=== PATIENT | female | born 1965 | race Caucasian/White ===

== ENCOUNTER 2017-01-11 17:34 | Inpatient (IN) | payer OTHER ==
[~2017-01-11] VITALS: Ht 172.7 cm; Wt 121.1 kg
--- NOTE | 2017-01-11 17:40 | NUR ---
ACCORDING TO DR TEIXEIRA PT IS NOT MEETING CRITERIA FOR CODE SEPSIS.
[2017-01-11] MEDS ORDERED: VANCOMYCIN IV 1,000 MG in IV DEXTROSE 5% 250 ML IV ONE (17:45)
[2017-01-11] MEDS ORDERED: ACETAMINOPHEN 325 MG TABLET PO ONE (17:45)
[2017-01-11] MEDS ORDERED: CEFAZOLIN 1 G in IV DEXTROSE 5% 50 ML IV ONE (17:45)
[2017-01-11] MEDS ORDERED: NAPR500T3 PO (17:58)
[2017-01-11] MEDS ORDERED: ALBU18HF2 INH (17:58)
[2017-01-11] MEDS ORDERED: IBUP-1953 PO (17:58)
[2017-01-11] MEDS ORDERED: FLUT1DIS28 INH (17:58)
--- NOTE | 2017-01-11 17:58 | NUR ---
MEDICATION INFORMATION FROM PT BEST SHE CAN RECALL.
--- NOTE | 2017-01-11 18:00 | NUR ---
UNABLE TO INSERT F/C. DR TEIXEIRA NOTIFIED.
--- NOTE | 2017-01-11 18:02 | NUR ---
PT IS IN ROOM #1B. DR TEIXEIRA EVALUATED THE PT.
[2017-01-11] MEDS ORDERED: ALBUTEROL SULFATE 2.5 MG/3 ML NEBU NEB ONE (18:15)
[2017-01-11] MEDS ORDERED: IPRATROPIUM BROMIDE 0.5 MG/2.5 ML NEBU NEB ONE (18:15)
[2017-01-11] MEDS ORDERED: MAGNESIUM SULFATE 2 GM in IV DEXTROSE 5% 100 ML IV ONE (18:15)
[2017-01-11] MEDS ORDERED: IPRATROPIUM BROMIDE 0.5 MG/2.5 ML NEBU ONE (18:23)
[2017-01-11] MEDS ORDERED: ALBUTEROL SULFATE 2.5 MG/3 ML NEBU ONE (18:23)
[2017-01-11 18:31] LABS: CREATININE 0.9 mg/dL (0.6-1.3); POTASSIUM 3.2 mmol/L (3.5-5.1)
[2017-01-11 18:34] LABS: BASOPHILS % (AUTO) 0.1 % (0.0-2.0); EOSINOPHILS % (AUTO) 0.1 % (0.0-7.0); HEMATOCRIT 30.4 % (37-47); HEMOGLOBIN 9.6 G/DL (12.0-16.0); LYMPHOCYTES # (AUTO) 0.6 K/UL (0.8-4.8); LYMPHOCYTES % (AUTO) 4.4 % (20.5-51.5); MEAN CORPUSCULAR HEMOGLOBIN 22.7 UUG (27.0-31.0); MEAN CORPUSCULAR HGB CONC 32 g/dL (32.0-37.0); MEAN CORPUSCULAR VOLUME 72.1 FL (81.0-99.0); MONOCYTES # (AUTO) 0.4 K/UL (0.1-1.30); MONOCYTES % (AUTO) 3.2 % (0.0-11.0); NEUTROPHILS % (AUTO) 92.2 % (38.5-71.5); PLATELET COUNT (AUTO) 192 K/UL (150-450); RED BLOOD CELL COUNT(AUTO) 4.22 MIL/UL (4.2-5.4)
[2017-01-11] MEDS ORDERED: ACETAMINOPHEN 325 MG TABLET ONE (18:38)
[2017-01-11] MEDS ORDERED: CEFAZOLIN 1 G VIAL ONE (18:38)
[2017-01-11] MEDS ORDERED: VANCOMYCIN IV 200 ML ONE (18:39)
[2017-01-11 18:44] LABS: BILIRUBIN,DIRECT 0.6 mg/dL (0.0-0.2); BILIRUBIN,TOTAL 1.2 mg/dL (0.2-1.0); TOTAL PROTEIN, SERUM 7.1 g/dL (6.4-8.2)
[2017-01-11] MEDS ORDERED: MAGNESIUM SULFATE/D5W 100 ML ONE (19:14)
[2017-01-11 19:37] LABS: BAND % (MANUAL) 45 % (0-10); LYMPHOCYTES % (MANUAL) 4 % (20-40); MONOCYTES % (MANUAL) 3 % (2-10); NEUTROPHILS % (MANUAL) 48 % (42-75)
[2017-01-11] MEDS ORDERED: MAGNESIUM HYDROXIDE 30 ML LIQUID UDC PO PRN (19:45)
[2017-01-11] MEDS ORDERED: ONDANSETRON 4 MG/2 ML VIAL IV PRN (19:45)
[2017-01-11] MEDS ORDERED: IBUPROFEN 400 MG TABLET PO PRN (19:45)
[2017-01-11] MEDS ORDERED: ALBUTEROL SULFATE 8 GM HFA.AER.AD INH SCH (19:45)
[2017-01-11] MEDS ORDERED: Z GUARD REMEDY PASTE 57 GM TUBE TOP PRN (19:45)
--- NOTE | 2017-01-11 19:45 | NUR ---
Patient does not qualify for sepsis criteria per Dr Titus
--- NOTE | 2017-01-11 19:47 | NUR ---
Per Dr Titus, Abrams Cath not indicated for patient at this time.
--- NOTE | 2017-01-11 20:15 | NUR ---
Admitted patient from ER with admitting DX: Cellulitis. AAO x 3, verbally reponsive but very drowsy during admission process. Routine admission care done. Plan of care initiated.
--- NOTE | 2017-01-11 20:22 | NUR ---
Pt. admitted to Telemetry , under care of Dr. Medina. Dx: Cellulitis Belongs List completed
[2017-01-11 21:58] VITALS: BP 100/53
[2017-01-12 00:18] LABS: BILIRUBIN,DIRECT 0.5 mg/dL (0.0-0.2); TOTAL PROTEIN, SERUM 6.5 g/dL (6.4-8.2)
[2017-01-12 00:26] VITALS: BP 98/58
[2017-01-12 05:18] VITALS: BP 100/62
--- NOTE | 2017-01-12 06:11 | NUR ---
Slept good. Patient more awake and alert now. Had episode of LBM x 1. No complaint of pain/discomforts presented. All needs attended and met. No significant event reported all night. Continue care as planned.
[2017-01-12 06:36] LABS: *BILIRUBIN,URIN NEGATIVE (NEGATIVE); *BLOOD, URINE NEGATIVE (NEGATIVE); *CLARITY,URINE TURBID (CLEAR); *COLOR,URINE YELLOW (YELLOW); *KETONES,URINE NEGATIVE (NEGATIVE); *PROTEIN,URINE 2+ (NEGATIVE); LEUKOCYTE ESTERASE ,URINE NEGATIVE (NEGATIVE); NITRITE, URINE NEGATIVE (NEGATIVE); UGLUCOSE NEGATIVE (NEGATIVE)
[2017-01-12 06:43] LABS: *URINE HCG, QUAL NEGATIVE (NEGATIVE)
[2017-01-12 06:53] LABS: BACTERIA,URINE FEW /HPF (NONE SEEN); RBC,URINE 0-3 /HPF (0-3); SQUAMOUS EPITHELIAL CELL,UR MANY /HPF (NONE SEEN)
--- NOTE | 2017-01-12 06:59 | NUR ---
Bedside reporting with VANI Larry
[2017-01-12 07:19] LABS: BASOPHILS % (AUTO) 0.1 % (0.0-2.0); EOSINOPHILS % (AUTO) 0.2 % (0.0-7.0); HEMATOCRIT 26.3 % (37-47); LYMPHOCYTES # (AUTO) 0.6 K/UL (0.8-4.8); LYMPHOCYTES % (AUTO) 7.3 % (20.5-51.5); MEAN CORPUSCULAR HEMOGLOBIN 24.5 UUG (27.0-31.0); MEAN CORPUSCULAR HGB CONC 34 g/dL (32.0-37.0); MEAN CORPUSCULAR VOLUME 71.6 FL (81.0-99.0); MONOCYTES # (AUTO) 0.2 K/UL (0.1-1.30); MONOCYTES % (AUTO) 2.6 % (0.0-11.0); NEUTROPHILS # (AUTO) 7.3 K/UL (1.8-8.9); NEUTROPHILS % (AUTO) 89.8 % (38.5-71.5); PLATELET COUNT (AUTO) 142 K/UL (150-450); RED BLOOD CELL COUNT(AUTO) 3.67 MIL/UL (4.2-5.4); WHITE BLOOD COUNT (AUTO) 8.1 K/UL (4.0-11.2)
--- NOTE | 2017-01-12 08:00 | NUR ---
states still sleepy, oriented x 4, on 2l/nc 02, tele SR 90's, denies of pain, had liquid stool, states unable to control it- washed and kept clean and dry, explained plan of care- verbalized understanding, needs attended, lower extremities with dsg, call light within reach
[2017-01-12 08:18] LABS: CREATININE 0.9 mg/dL (0.6-1.3); MAGNESIUM 2.1 mg/dL (1.8-2.4); PHOSPHOROUS 2.4 mg/dL (2.5-4.9); POTASSIUM 3.2 mmol/L (3.5-5.1)
[2017-01-12] MEDS ORDERED: NAPROXEN 500 MG TABLET PO SCH (09:00)
[2017-01-12] MEDS: FLUTICASONE/VILANTEROL 1 EACH BLST.W.DEV INH SCH (09:00)
[2017-01-12] MEDS ORDERED: FLUTICASONE/SALMETEROL 250/50 INHALER INH SCH (09:00)
--- NOTE | 2017-01-12 09:00 | NUR ---
had another liquid stool- washed and kept clean and dry, perineal area applied with Z guard ointment, informed Dr Lomeli- to send stool for c diff
[2017-01-12] MEDS: VANCOMYCIN IV 2,000 MG in IV DEXTROSE 5% 500 ML IV SCH (09:18)
[2017-01-12 09:25] LABS: BAND % (MANUAL) 30 % (0-10); LYMPHOCYTES % (MANUAL) 10 % (20-40); MONOCYTES % (MANUAL) 2 % (2-10); NEUTROPHILS % (MANUAL) 58 % (42-75)
[2017-01-12] MEDS: ALBUTEROL SULFATE 2.5 MG/3 ML NEBU NEB PRN ×3 (09:49→22:02)
--- NOTE | 2017-01-12 09:49 | NUR ---
CLINICAL PHARMACY NOTE: VANCOMYCIN PHARMACY TO DOSE Subjective: To continue vancomycin in this 51 y/o female for cellulitis (waiting for MD note) Objective: height 68'' weight 237 lb Objective BUN 16 Scr 0.9 wbc 8.1 temp 98.2 Assessment/Plan Since vanco random this am is below 20 mcg/ml, will give vancomycin 2gm IVPB x1 tonight at 1999. Will continue to dose by fall off level. pharmacist shall review srcr in am & decide when to order next random level for further dosing. Will monitor daily. Addendum: 01/12/17 at 1048 by MAE OCONNELL ignore note above- please see note from 11am
--- NOTE | 2017-01-12 10:30 | NUR ---
back to bed from chair- dressing change on both lower legs done- redness/swelling and open sores worst on right leg
--- NOTE | 2017-01-12 10:48 | NUR ---
CLINICAL PHARMACY NOTE: VANCOMYCIN PHARMACY TO DOSE Subjective: To continue vancomycin in this 51 y/o female for cellulitis (waiting for MD note) Objective: height 68'' weight 237 lb Objective BUN 16 Scr 0.9 wbc 8.1 temp 98.2 Assessment/Plan Will start vancomycin 2gm IVPB q15hr for predicted vanco trough level of 15.7 mcg/ml at steady state. 1st dose is due otday at 0900. Plan to draw vanco trough level before 4th dose (not yet ordered). Will monitor renal function. Will monitor daily.
[2017-01-12] MEDS ORDERED: POTASSIUM CHLORIDE 20 MEQ TAB.PRT.SR PO ONE (11:00)
--- NOTE | 2017-01-12 11:10 | NUR ---
temp 101.1- Dr Lomeli notified- Tylenol 650 mg po given as prn, cooling measures done
[2017-01-12] MEDS: ACETAMINOPHEN 325 MG TABLET PO PRN (11:17)
[2017-01-12 11:24] VITALS: BP 105/58
[2017-01-12] MEDS: MEROPENEM 1 G in IV NORMAL SALINE 100 ML IV SCH ×2 (13:37→21:39)
--- NOTE | 2017-01-12 14:16 | NUR ---
WOUND CARE CONSULT: PT PRESENTS WITH BILATERAL LOWER LEG REDNESS, RT WORSE THAN LEFT AND EXTENDING TO THIGH. PT ALSO NOTED TO HAVE OPEN AREAS TO LOWER LEGS. RECOMMENDATIONS MADE FOR WOUND CARE. DISCUSSED WITH NURSING STAFF. RECOMMEND SURGICAL FOLLOW UP. PT REPORTS THAT SHE GOES TO A WOUND CLINIC IN [place]. WILL SEE PRN. WARNER IN AGREEMENT WITH PLAN OF CARE. Addendum: 01/12/17 at 1418 by PATRICIA POLLOCK RN Amended: Links added.
[2017-01-12] MEDS: POTASSIUM PHOSPHATE MM 7.5 MMOL in IV DEXTROSE 5% 100 ML IV SCH ×2 (14:23→17:32)
[2017-01-12] MEDS: HYDROCODONE/APAP 5-325MG TABLET PO PRN ×2 (14:30→21:37)
--- NOTE | 2017-01-12 16:00 | NUR ---
wound care done as ordered on both lower extremities, kept elevated on pillows
[2017-01-12] MEDS: SILVER SULFADIAZINE 1% CREAM 50 GM TP SCH (16:06)
[2017-01-12 16:13] VITALS: BP 118/62
--- NOTE | 2017-01-12 17:00 | NUR ---
no further diarrhea noted- still in need of stool for c diff- placed on isolation as precautionary measure
--- NOTE | 2017-01-12 18:38 | NUR ---
resting in bed, denies of pain, both legs kept elevated on pillows, no shortness of breath, tele SR 90's, all needs attended and met, safety and comfort measures maintained
--- NOTE | 2017-01-12 20:00 | NUR ---
PATIENT AWAKE,ALERT,AFEBRILE,BP STABLE, NSR ON MONITOR, BILATERAL LOWER LEGS REDNESS AND SWOLLEN DRESSING INTACT, PEDAL PULSES PRESENT ,ELEVATED ON PILLOW, ISOLATION PRECAUTION FOR POSSIBLE C DIFF.
[2017-01-12 20:48] VITALS: BP 113/63
[2017-01-13 00:05] VITALS: BP 116/61
[2017-01-13] MEDS: VANCOMYCIN IV 2,000 MG in IV DEXTROSE 5% 500 ML IV SCH ×2 (00:05→15:38)
[2017-01-13] MEDS: ALBUTEROL SULFATE 2.5 MG/3 ML NEBU NEB PRN ×4 (03:59→22:23)
[2017-01-13 04:00] VITALS: BP 110/63
--- NOTE | 2017-01-13 04:43 | NUR ---
PATIENT SLEPT WELL, CONTINUE BREATHING TX BY RT, WITH GOOD RESULT, NO FURTHER DIARRHEA NOTED.
[2017-01-13] MEDS: MEROPENEM 1 G in IV NORMAL SALINE 100 ML IV SCH ×3 (05:16→21:23)
[2017-01-13 06:34] LABS: BASOPHILS % (AUTO) 0.1 % (0.0-2.0); EOSINOPHILS % (AUTO) 0.4 % (0.0-7.0); HEMATOCRIT 27.1 % (37-47); HEMOGLOBIN 8.7 G/DL (12.0-16.0); LYMPHOCYTES # (AUTO) 0.9 K/UL (0.8-4.8); LYMPHOCYTES % (AUTO) 14.4 % (20.5-51.5); MEAN CORPUSCULAR HEMOGLOBIN 23.3 UUG (27.0-31.0); MEAN CORPUSCULAR HGB CONC 32 g/dL (32.0-37.0); MONOCYTES # (AUTO) 0.6 K/UL (0.1-1.30); MONOCYTES % (AUTO) 8.4 % (0.0-11.0); NEUTROPHILS # (AUTO) 5.1 K/UL (1.8-8.9); NEUTROPHILS % (AUTO) 76.7 % (38.5-71.5); PLATELET COUNT (AUTO) 138 K/UL (150-450); RED BLOOD CELL COUNT(AUTO) 3.71 MIL/UL (4.2-5.4); WHITE BLOOD COUNT (AUTO) 6.6 K/UL (4.0-11.2)
[2017-01-13 06:53] LABS: CREATININE 0.8 mg/dL (0.6-1.3); POTASSIUM 3.6 mmol/L (3.5-5.1)
--- NOTE | 2017-01-13 08:00 | NUR ---
awake alert and oriented, denies of pain, has occasional non productive cough, tele SR 80's, on room air at this time, head of bed elevated, explained plan of care- verbalized understanding, safety and comfort measures maintained, still in need of stool for c diff- no diarrhea noted, on isolation for precautionary measure
[2017-01-13 08:37] LABS: MAGNESIUM 1.9 mg/dL (1.8-2.4); PHOSPHOROUS 2.2 mg/dL (2.5-4.9)
[2017-01-13] MEDS: FLUTICASONE/VILANTEROL 1 EACH BLST.W.DEV INH SCH (09:00)
[2017-01-13] MEDS: SILVER SULFADIAZINE 1% CREAM 50 GM TP SCH (09:09)
[2017-01-13] MEDS: HYDROCODONE/APAP 5-325MG TABLET PO PRN ×2 (09:12→22:47)
[2017-01-13 09:34] LABS: BAND % (MANUAL) 29 % (0-10); LYMPHOCYTES % (MANUAL) 17 % (20-40); METAMYELOCYTES % 1 % (0-1); MONOCYTES % (MANUAL) 8 % (2-10); NEUTROPHILS % (MANUAL) 45 % (42-75)
--- NOTE | 2017-01-13 10:00 | NUR ---
WOUND CARE DONE ON BOTH LOWER EXTREMITIES ORDERED
[2017-01-13 11:32] VITALS: BP 115/62
--- NOTE | 2017-01-13 15:08 | NUR ---
CLINICAL PHARMACY NOTE: VANCOMYCIN PHARMACY TO DOSE Subjective: To continue vancomycin in this 51 y/o female for cellulitis Objective: height 68'' weight 237 lb Objective BUN 10 Scr 0.8 wbc 6.6 temp 100.2 Assessment/Plan Will continue vancomycin 2gm IVPB q15hr for predicted vanco trough level of 15.7 mcg/ml at steady state. Plan to draw vanco trough level before 4th dose (ordered for tomorrow at 0530) . Will monitor renal function. Will monitor daily.
[2017-01-13] MEDS: ACETAMINOPHEN 325 MG TABLET PO PRN ×2 (15:38→22:47)
[2017-01-13] MEDS ORDERED: NEUTRA PHOS PACKET PO ONE (15:45)
[2017-01-13 16:01] VITALS: BP 100/69
--- NOTE | 2017-01-13 17:14 | NUR ---
AT THIS TIME IV ANTIBIOTICS INFUSING, NO ADVERSE REACTIONS NOTED
--- NOTE | 2017-01-13 18:30 | NUR ---
no distress noted, call light within reach, all needs attended and met, still in need of stool for c diff- no BM this shift, endorsed to next shift
[2017-01-13 20:00] VITALS: BP 100/61
[2017-01-14 05:00] VITALS: BP 119/69
[2017-01-14] MEDS: ALBUTEROL SULFATE 2.5 MG/3 ML NEBU NEB PRN ×3 (05:28→22:49)
[2017-01-14 05:57] LABS: BASOPHILS % (AUTO) 0.1 % (0.0-2.0); EOSINOPHILS # (AUTO) 0.1 K/uL (0.0-0.7); EOSINOPHILS % (AUTO) 1.7 % (0.0-7.0); HEMATOCRIT 27.9 % (37-47); HEMOGLOBIN 8.8 G/DL (12.0-16.0); LYMPHOCYTES # (AUTO) 1.4 K/UL (0.8-4.8); LYMPHOCYTES % (AUTO) 19.2 % (20.5-51.5); MEAN CORPUSCULAR HEMOGLOBIN 23.1 UUG (27.0-31.0); MEAN CORPUSCULAR HGB CONC 32 g/dL (32.0-37.0); MEAN CORPUSCULAR VOLUME 73.1 FL (81.0-99.0); MONOCYTES # (AUTO) 0.8 K/UL (0.1-1.30); MONOCYTES % (AUTO) 10.6 % (0.0-11.0); NEUTROPHILS # (AUTO) 5.2 K/UL (1.8-8.9); NEUTROPHILS % (AUTO) 68.4 % (38.5-71.5); PLATELET COUNT (AUTO) 151 K/UL (150-450); RED BLOOD CELL COUNT(AUTO) 3.82 MIL/UL (4.2-5.4); WHITE BLOOD COUNT (AUTO) 7.5 K/UL (4.0-11.2)
[2017-01-14 06:07] LABS: CREATININE 0.6 mg/dL (0.6-1.3); MAGNESIUM 1.9 mg/dL (1.8-2.4); PHOSPHOROUS 3.3 mg/dL (2.5-4.9); POTASSIUM 3.4 mmol/L (3.5-5.1)
[2017-01-14 06:15] LABS: BAND % (MANUAL) 3 % (0-10); LYMPHOCYTES % (MANUAL) 21 % (20-40); MONOCYTES % (MANUAL) 8 % (2-10); NEUTROPHILS % (MANUAL) 68 % (42-75)
[2017-01-14] MEDS: VANCOMYCIN IV 2,000 MG in IV DEXTROSE 5% 500 ML IV SCH ×2 (06:54→17:07)
[2017-01-14] MEDS: MEROPENEM 1 G in IV NORMAL SALINE 100 ML IV SCH ×3 (06:54→22:03)
[2017-01-14] MEDS: ACETAMINOPHEN 325 MG TABLET PO PRN (07:49)
[2017-01-14] MEDS: FLUTICASONE/VILANTEROL 1 EACH BLST.W.DEV INH SCH (08:19)
[2017-01-14] MEDS: SILVER SULFADIAZINE 1% CREAM 50 GM TP SCH (08:34)
[2017-01-14] MEDS ORDERED: POTASSIUM CHLORIDE 20 MEQ TAB.PRT.SR PO ONE (11:15)
--- NOTE | 2017-01-14 11:45 | NUR ---
NOC SHIFT DID NOT DO WOUND PICTURES APPROPRIATE, ASKED THE PT IF THE PT IS OK TO HAVE PICTURES TAKEN, PER PT "THEY WILL DO IT TOMORROW". PT REFUSED, WILL ADVISE THE NURSE.
[2017-01-14 11:51] VITALS: BP 112/75
--- NOTE | 2017-01-14 14:36 | NUR ---
per dr. pedro "zeenat the border of the cellulitis on right inner thigh" Pt refused
--- NOTE | 2017-01-14 14:42 | NUR ---
CLINICAL PHARMACY NOTE: VANCOMYCIN PHARMACY TO DOSE Subjective: To continue vancomycin in this 51 y/o female for cellulitis Objective: height 68'' weight 237 lb Objective BUN 9 Scr 0.6 wbc 7.5 temp 99 Vancomycin trough was 7.4 today at 0530 Assessment/Plan Will change Vancomycin to 2gm IVPB every 10 hsr(2nd dose today at 1700) and draw trough by 4th dose(ordered for tomorrow at 1230) for expected trough around 15.4. Will monitor renal function to adjust the dose if needed. Will follow daily.
[2017-01-14 15:52] VITALS: BP 118/69
[2017-01-14] MEDS: HYDROCODONE/APAP 5-325MG TABLET PO PRN (18:34)
--- NOTE | 2017-01-14 19:02 | NUR ---
END OF SHIFT REPORT: PT IS LAYING IN BED. MEDICATED PT FOR PAIN PER MD ORDER. NO S/S OF RESPIRATORY DISTRESS NOTED. IV INTACT/PATENT. ALL SAFETY NEEDS ARE MET.
[2017-01-14 20:00] VITALS: BP 118/73
[2017-01-14] MEDS: LACTOBACILLUS RHAMNOSUS GG 1 EACH CAPSULE PO SCH (20:25)
--- NOTE | 2017-01-14 21:00 | NUR ---
Patient in bed, no SOB denies chest pain. BLE cellulitis noted, wound dressing intact. Kept leg elevated on a pillow. Vital signs are WNL.
--- NOTE | 2017-01-14 23:00 | NUR ---
Still awake, miller catheter in place. Patient had a small BM, perianal care & sponge bath provided. Repositioned in bed, kept comfortable.
--- NOTE | 2017-01-15 01:00 | NUR ---
Patient sleeping comfortably.
--- NOTE | 2017-01-15 03:30 | NUR ---
Right hand IV line got infiltrated, inserted new heplock to her left forearm w/ [id number].
[2017-01-15] MEDS: HYDROCODONE/APAP 5-325MG TABLET PO PRN ×2 (04:09→14:17)
[2017-01-15] MEDS: VANCOMYCIN IV 2,000 MG in IV DEXTROSE 5% 500 ML IV SCH (04:09)
[2017-01-15] MEDS: MEROPENEM 1 G in IV NORMAL SALINE 100 ML IV SCH ×3 (05:55→21:39)
[2017-01-15 06:02] VITALS: BP 116/65
[2017-01-15 06:27] LABS: BASOPHILS % (AUTO) 0.1 % (0.0-2.0); EOSINOPHILS # (AUTO) 0.2 K/uL (0.0-0.7); EOSINOPHILS % (AUTO) 2.6 % (0.0-7.0); HEMATOCRIT 26.8 % (37-47); HEMOGLOBIN 8.6 G/DL (12.0-16.0); LYMPHOCYTES # (AUTO) 1.5 K/UL (0.8-4.8); LYMPHOCYTES % (AUTO) 19.9 % (20.5-51.5); MEAN CORPUSCULAR HEMOGLOBIN 23.5 UUG (27.0-31.0); MEAN CORPUSCULAR HGB CONC 32 g/dL (32.0-37.0); MEAN CORPUSCULAR VOLUME 73.2 FL (81.0-99.0); MONOCYTES # (AUTO) 0.8 K/UL (0.1-1.30); MONOCYTES % (AUTO) 10.4 % (0.0-11.0); NEUTROPHILS # (AUTO) 4.8 K/UL (1.8-8.9); PLATELET COUNT (AUTO) 162 K/UL (150-450); RED BLOOD CELL COUNT(AUTO) 3.66 MIL/UL (4.2-5.4); WHITE BLOOD COUNT (AUTO) 7.3 K/UL (4.0-11.2)
--- NOTE | 2017-01-15 06:40 | NUR ---
Patient rested well, kept comfortable. Attended w/ all needs. No acute resp distress. Vital signs are WNL.
[2017-01-15 07:26] LABS: CREATININE 0.6 mg/dL (0.6-1.3); MAGNESIUM 1.9 mg/dL (1.8-2.4); PHOSPHOROUS 3.4 mg/dL (2.5-4.9); POTASSIUM 3.3 mmol/L (3.5-5.1)
--- NOTE | 2017-01-15 07:45 | NUR ---
Awake, comfortable. Discussed plan of care
[2017-01-15 08:08] LABS: BAND % (MANUAL) 12 % (0-10); EOSINOPHILS % (MANUAL) 4 % (0-8); LYMPHOCYTES % (MANUAL) 17 % (20-40); MONOCYTES % (MANUAL) 9 % (2-10); NEUTROPHILS % (MANUAL) 58 % (42-75)
[2017-01-15] MEDS: FLUTICASONE/VILANTEROL 1 EACH BLST.W.DEV INH SCH ×2 (09:00→10:03)
[2017-01-15] MEDS ORDERED: POTASSIUM CHLORIDE 20 MEQ TAB.PRT.SR PO ONE (09:30)
--- NOTE | 2017-01-15 10:00 | NUR ---
Medication given, asked for time of wound care, she requested around 1400
[2017-01-15] MEDS: LACTOBACILLUS RHAMNOSUS GG 1 EACH CAPSULE PO SCH ×2 (10:03→19:54)
[2017-01-15] MEDS: SILVER SULFADIAZINE 1% CREAM 50 GM TP SCH (10:04)
[2017-01-15 11:10] VITALS: BP 118/64
[2017-01-15] MEDS: ALBUTEROL SULFATE 2.5 MG/3 ML NEBU NEB PRN ×3 (11:57→23:33)
--- NOTE | 2017-01-15 13:25 | NUR ---
CLINICAL PHARMACY NOTE: VANCOMYCIN PHARMACY TO DOSE Subjective: To continue vancomycin in this 51 y/o female for cellulitis Objective: height 68'' weight 237 lb Objective BUN 7 Scr 0.6 wbc 7.3 temp 98.3 Vancomycin trough level: 10.8 Assessment/Plan Will change Vancomycin to 2gm IVPB every 8 hsr for predicted vanco trough level of 15 mcg/ml at steady state. 1st dose is due today at 1400. Plan to draw trough level by 4th dose(ordered for tomorrow at 1330) for expected trough around 15 mcg/ml. Pharmacy shall review vanco trough level when available & adjust the dose if needed. Will follow daily.
[2017-01-15] MEDS ORDERED: VANCOMYCIN IV 2,000 MG in IV DEXTROSE 5% 500 ML IV SCH (14:00)
--- NOTE | 2017-01-15 14:00 | NUR ---
Medication given. Requested wound care to be done at 1630 after shower, but not to disturbed when sleeping.
[2017-01-15] MEDS: ACETAMINOPHEN 325 MG TABLET PO PRN (14:18)
[2017-01-15] MEDS: KETOROLAC TROMETHAMINE 15 MG INJ IVP PRN ×2 (15:00→19:54)
[2017-01-15 15:20] VITALS: BP 102/58
[2017-01-15] MEDS: CLINDAMYCIN PHOSPHATE IV 900 MG in IV DEXTROSE 5% 100 ML IV SCH ×2 (16:06→20:56)
--- NOTE | 2017-01-15 16:30 | NUR ---
Patient sleeping soundly.
[2017-01-15] MEDS: LINEZOLID IV 600 MG in PREMIXED 1 EACH IV SCH (16:42)
[2017-01-15] MEDS: MULTIVIT, IRON, MIN NO. 8, FA TABLET PO SCH (17:59)
[2017-01-15] MEDS: ZINC SULFATE 220 MG CAPSULE PO SCH (17:59)
[2017-01-15] MEDS: ASCORBIC ACID 500 MG TABLET PO SCH (17:59)
--- NOTE | 2017-01-15 18:00 | NUR ---
Patient eating dinner, medication given, family at bedside. Asked about wound care, she wants it later in the evening with next shift
--- NOTE | 2017-01-15 19:01 | NUR ---
Endorsed for further care and wound care.
[2017-01-15] MEDS: Z GUARD REMEDY PASTE 57 GM TUBE TOP PRN (19:58)
[2017-01-15 20:35] VITALS: BP 100/64
--- NOTE | 2017-01-15 22:00 | NUR ---
Awake in bed, plan of care discussed. Back massage & Sponge bath provided. Medicated w/ Toradol IVP followed by wound treatment & dressing change. Instructed to elevate leg above heart at all times. Kept comfortable.
[2017-01-16] MEDS: LINEZOLID IV 600 MG in PREMIXED 1 EACH IV SCH ×2 (04:11→15:31)
[2017-01-16 04:32] VITALS: BP 120/58
[2017-01-16] MEDS: CLINDAMYCIN PHOSPHATE IV 900 MG in IV DEXTROSE 5% 100 ML IV SCH ×3 (05:26→21:10)
[2017-01-16] MEDS: MEROPENEM 1 G in IV NORMAL SALINE 100 ML IV SCH ×3 (05:36→21:09)
[2017-01-16] MEDS: HYDROCODONE/APAP 5-325MG TABLET PO PRN (05:36)
[2017-01-16 06:43] LABS: BASOPHILS % (AUTO) 0.1 % (0.0-2.0); EOSINOPHILS # (AUTO) 0.3 K/uL (0.0-0.7); EOSINOPHILS % (AUTO) 2.9 % (0.0-7.0); HEMATOCRIT 27.8 % (37-47); HEMOGLOBIN 8.8 G/DL (12.0-16.0); LYMPHOCYTES # (AUTO) 1.9 K/UL (0.8-4.8); MEAN CORPUSCULAR HEMOGLOBIN 23.2 UUG (27.0-31.0); MEAN CORPUSCULAR HGB CONC 32 g/dL (32.0-37.0); MEAN CORPUSCULAR VOLUME 73.4 FL (81.0-99.0); MONOCYTES # (AUTO) 0.8 K/UL (0.1-1.30); MONOCYTES % (AUTO) 9.3 % (0.0-11.0); NEUTROPHILS # (AUTO) 5.9 K/UL (1.8-8.9); NEUTROPHILS % (AUTO) 65.7 % (38.5-71.5); RED BLOOD CELL COUNT(AUTO) 3.78 MIL/UL (4.2-5.4); WHITE BLOOD COUNT (AUTO) 8.9 K/UL (4.0-11.2)
[2017-01-16 06:51] LABS: PLATELET COUNT (AUTO) 209 K/UL (150-450)
[2017-01-16 07:01] LABS: CREATININE 0.7 mg/dL (0.6-1.3); MAGNESIUM 1.9 mg/dL (1.8-2.4); PHOSPHOROUS 4.2 mg/dL (2.5-4.9); POTASSIUM 3.8 mmol/L (3.5-5.1)
[2017-01-16 08:36] LABS: BAND % (MANUAL) 7 % (0-10); EOSINOPHILS % (MANUAL) 6 % (0-8); LYMPHOCYTES % (MANUAL) 17 % (20-40); METAMYELOCYTES % 1 % (0-1); MONOCYTES % (MANUAL) 6 % (2-10); NEUTROPHILS % (MANUAL) 63 % (42-75)
[2017-01-16] MEDS: FLUTICASONE/VILANTEROL 1 EACH BLST.W.DEV INH SCH (09:00)
[2017-01-16] MEDS: LACTOBACILLUS RHAMNOSUS GG 1 EACH CAPSULE PO SCH ×2 (09:00→21:11)
[2017-01-16] MEDS: ZINC SULFATE 220 MG CAPSULE PO SCH (09:00)
[2017-01-16] MEDS: MULTIVIT, IRON, MIN NO. 8, FA TABLET PO SCH (09:01)
[2017-01-16] MEDS: ASCORBIC ACID 500 MG TABLET PO SCH (09:01)
[2017-01-16] MEDS: SILVER SULFADIAZINE 1% CREAM 50 GM TP SCH (09:06)
[2017-01-16 11:14] VITALS: BP 121/75
[2017-01-16] MEDS: ALBUTEROL SULFATE 2.5 MG/3 ML NEBU NEB PRN ×3 (12:11→23:58)
[2017-01-16 15:14] VITALS: BP 103/72
[2017-01-16 20:00] VITALS: BP 91/64
[2017-01-16] MEDS: KETOROLAC TROMETHAMINE 15 MG INJ IVP PRN (21:14)
[2017-01-16] MEDS: Z GUARD REMEDY PASTE 57 GM TUBE TOP PRN (21:17)
[2017-01-17] MEDS: HYDROCODONE/APAP 5-325MG TABLET PO PRN ×3 (02:07→21:03)
[2017-01-17] MEDS: Z GUARD REMEDY PASTE 57 GM TUBE TOP PRN ×3 (02:08→21:08)
[2017-01-17] MEDS: LINEZOLID IV 600 MG in PREMIXED 1 EACH IV SCH ×2 (04:15→17:23)
[2017-01-17 04:43] VITALS: BP 119/70
[2017-01-17] MEDS: CLINDAMYCIN PHOSPHATE IV 900 MG in IV DEXTROSE 5% 100 ML IV SCH ×3 (05:09→21:03)
[2017-01-17] MEDS: MEROPENEM 1 G in IV NORMAL SALINE 100 ML IV SCH ×3 (05:09→21:03)
--- NOTE | 2017-01-17 07:15 | NUR ---
No significant change. BLE swelling/redness slightly improved, assisted w/ all needs. Vital signs are WNL.
--- NOTE | 2017-01-17 07:30 | NUR ---
on beds, sleepy but easily arousable. denies discomfort for now.breakfast served, ate well. made comfortable.
[2017-01-17] MEDS: FLUTICASONE/VILANTEROL 1 EACH BLST.W.DEV INH SCH (09:00)
--- NOTE | 2017-01-17 09:00 | NUR ---
bilateral lower extremities drying skin, discoloration , dressing done as ordered.
[2017-01-17] MEDS: ASCORBIC ACID 500 MG TABLET PO SCH (09:05)
[2017-01-17] MEDS: ZINC SULFATE 220 MG CAPSULE PO SCH (09:05)
[2017-01-17] MEDS: MULTIVIT, IRON, MIN NO. 8, FA TABLET PO SCH (09:05)
[2017-01-17] MEDS: LACTOBACILLUS RHAMNOSUS GG 1 EACH CAPSULE PO SCH ×2 (09:05→21:03)
[2017-01-17] MEDS: SILVER SULFADIAZINE 1% CREAM 50 GM TP SCH (09:07)
--- NOTE | 2017-01-17 09:30 | NUR ---
medicated po med as ordered. resting for now.
[2017-01-17 12:11] VITALS: BP 127/61
--- NOTE | 2017-01-17 13:29 | NUR ---
significant other at bedside, supportive of patient care. appreciative of shower this am.
[2017-01-17] MEDS: ALBUTEROL SULFATE 2.5 MG/3 ML NEBU NEB PRN ×3 (15:38→23:49)
[2017-01-17 16:00] VITALS: BP 114/85
--- NOTE | 2017-01-17 17:16 | NUR ---
back from radiology, delayed from iv antibiotic, will continue as ordered.
[2017-01-17] MEDS: KETOROLAC TROMETHAMINE 15 MG INJ IVP PRN (17:23)
[2017-01-17 20:26] VITALS: BP 119/70
[2017-01-18] MEDS: KETOROLAC TROMETHAMINE 15 MG INJ IVP PRN ×3 (00:55→22:06)
[2017-01-18 04:00] VITALS: BP 106/68
--- NOTE | 2017-01-18 04:00 | NUR ---
IV line got infiltrated. Re-started new line access to her left AC w/ [id number]. Tolerated IV antibiotics, Bilateral leg cellulitis slightly improved. Medicated for pain PRN, wound care/dressing change done as ordered. No acute resp. distress. Had large BM today, assisted w/ all needs, kept comfortable. Spouse by the bedside. Will continue to monitor.
[2017-01-18] MEDS: LINEZOLID IV 600 MG in PREMIXED 1 EACH IV SCH ×2 (04:14→16:10)
[2017-01-18] MEDS: MEROPENEM 1 G in IV NORMAL SALINE 100 ML IV SCH ×3 (05:03→21:54)
[2017-01-18] MEDS: CLINDAMYCIN PHOSPHATE IV 900 MG in IV DEXTROSE 5% 100 ML IV SCH ×3 (05:04→21:55)
--- NOTE | 2017-01-18 07:30 | NUR ---
patient sleeping comfortably. no distress noted
[2017-01-18 07:50] LABS: CREATININE 0.7 mg/dL (0.6-1.3); MAGNESIUM 2.1 mg/dL (1.8-2.4); PHOSPHOROUS 4.2 mg/dL (2.5-4.9); POTASSIUM 4.7 mmol/L (3.5-5.1)
[2017-01-18 08:12] LABS: BASOPHILS # (AUTO) 0.1 K/uL (0.0-8.0); BASOPHILS % (AUTO) 1.2 % (0.0-2.0); EOSINOPHILS # (AUTO) 0.2 K/uL (0.0-0.7); EOSINOPHILS % (AUTO) 2.8 % (0.0-7.0); HEMATOCRIT 27.1 % (37-47); HEMOGLOBIN 8.5 G/DL (12.0-16.0); LYMPHOCYTES # (AUTO) 1.5 K/UL (0.8-4.8); LYMPHOCYTES % (AUTO) 19.7 % (20.5-51.5); MEAN CORPUSCULAR HEMOGLOBIN 22.7 UUG (27.0-31.0); MEAN CORPUSCULAR HGB CONC 31 g/dL (32.0-37.0); MEAN CORPUSCULAR VOLUME 72.5 FL (81.0-99.0); MONOCYTES # (AUTO) 0.7 K/UL (0.1-1.30); MONOCYTES % (AUTO) 8.9 % (0.0-11.0); NEUTROPHILS # (AUTO) 5.3 K/UL (1.8-8.9); NEUTROPHILS % (AUTO) 67.4 % (38.5-71.5); PLATELET COUNT (AUTO) 260 K/UL (150-450); RED BLOOD CELL COUNT(AUTO) 3.73 MIL/UL (4.2-5.4); WHITE BLOOD COUNT (AUTO) 7.8 K/UL (4.0-11.2)
[2017-01-18] MEDS: FLUTICASONE/VILANTEROL 1 EACH BLST.W.DEV INH SCH (08:38)
[2017-01-18 08:42] LABS: BAND % (MANUAL) 8 % (0-10); EOSINOPHILS % (MANUAL) 2 % (0-8); LYMPHOCYTES % (MANUAL) 20 % (20-40); METAMYELOCYTES % 1 % (0-1); MONOCYTES % (MANUAL) 9 % (2-10); NEUTROPHILS % (MANUAL) 60 % (42-75)
[2017-01-18] MEDS: LACTOBACILLUS RHAMNOSUS GG 1 EACH CAPSULE PO SCH ×2 (08:53→21:54)
[2017-01-18] MEDS: ZINC SULFATE 220 MG CAPSULE PO SCH (08:53)
[2017-01-18] MEDS: ASCORBIC ACID 500 MG TABLET PO SCH (08:53)
[2017-01-18] MEDS: MULTIVIT, IRON, MIN NO. 8, FA TABLET PO SCH (08:53)
[2017-01-18] MEDS: SILVER SULFADIAZINE 1% CREAM 50 GM TP SCH (11:20)
[2017-01-18 11:49] VITALS: BP 135/57
--- NOTE | 2017-01-18 12:12 | NUR ---
boyfriend in , patient glad of stay.
--- NOTE | 2017-01-18 15:42 | NUR ---
sleeping on and off, brp , good bowel movements.
[2017-01-18 16:00] VITALS: BP 136/57
[2017-01-18] MEDS: ALBUTEROL SULFATE 2.5 MG/3 ML NEBU NEB PRN ×2 (17:37→22:56)
[2017-01-18] MEDS: MAG HYDROX/AL HYDROX/SIMETH 30 ML LIQUID UDC PO PRN ×2 (18:33→22:03)
[2017-01-18 20:00] VITALS: BP 130/56
[2017-01-18] MEDS: HYDROCODONE/APAP 5-325MG TABLET PO PRN (22:05)
[2017-01-18] MEDS ORDERED: TEMAZEPAM 30 MG CAPSULE PO PRN (22:30)
[2017-01-19] MEDS: LINEZOLID IV 600 MG in PREMIXED 1 EACH IV SCH ×2 (03:36→16:03)
--- NOTE | 2017-01-19 05:11 | NUR ---
NO SIGNIFICANT CHANGES THIS SHIFT. PT AMBULATORY TO BATHROOM. AT BEDSIDE. NORCO AND TORADOL ADMINISTERED FOR PAIN. PT SLEPT INTERMITTENTLY. NOW RESTING IN BED. MADE COMFORTABLE. BED IN LOW POSITION. CALL LIGHT AND POSSESSIONS WITH IN REACH. WILL CONTINUE WITH PLAN OF CARE AND ENDORSE TO DAYSHIFT RN.
[2017-01-19] MEDS: CLINDAMYCIN PHOSPHATE IV 900 MG in IV DEXTROSE 5% 100 ML IV SCH ×3 (05:23→22:05)
[2017-01-19 05:26] VITALS: BP 100/55
[2017-01-19] MEDS: MEROPENEM 1 G in IV NORMAL SALINE 100 ML IV SCH ×3 (06:10→22:20)
[2017-01-19 06:44] LABS: CREATININE 0.7 mg/dL (0.6-1.3); MAGNESIUM 2.5 mg/dL (1.8-2.4); PHOSPHOROUS 4.7 mg/dL (2.5-4.9); POTASSIUM 4.7 mmol/L (3.5-5.1)
[2017-01-19 06:50] LABS: BASOPHILS % (AUTO) 0.1 % (0.0-2.0); EOSINOPHILS # (AUTO) 0.2 K/uL (0.0-0.7); HEMATOCRIT 26.7 % (37-47); HEMOGLOBIN 8.4 G/DL (12.0-16.0); LYMPHOCYTES # (AUTO) 1.7 K/UL (0.8-4.8); LYMPHOCYTES % (AUTO) 24.1 % (20.5-51.5); MEAN CORPUSCULAR HGB CONC 31 g/dL (32.0-37.0); MEAN CORPUSCULAR VOLUME 73.5 FL (81.0-99.0); MONOCYTES # (AUTO) 0.8 K/UL (0.1-1.30); MONOCYTES % (AUTO) 11.2 % (0.0-11.0); NEUTROPHILS # (AUTO) 4.2 K/UL (1.8-8.9); NEUTROPHILS % (AUTO) 61.6 % (38.5-71.5); PLATELET COUNT (AUTO) 273 K/UL (150-450); RED BLOOD CELL COUNT(AUTO) 3.63 MIL/UL (4.2-5.4); WHITE BLOOD COUNT (AUTO) 6.9 K/UL (4.0-11.2)
[2017-01-19] MEDS: FLUTICASONE/VILANTEROL 1 EACH BLST.W.DEV INH SCH (08:56)
[2017-01-19] MEDS: ZINC SULFATE 220 MG CAPSULE PO SCH (09:24)
[2017-01-19] MEDS: LACTOBACILLUS RHAMNOSUS GG 1 EACH CAPSULE PO SCH ×2 (09:24→22:05)
[2017-01-19] MEDS: ASCORBIC ACID 500 MG TABLET PO SCH (09:24)
[2017-01-19] MEDS: MULTIVIT, IRON, MIN NO. 8, FA TABLET PO SCH (09:25)
[2017-01-19] MEDS: MAG HYDROX/AL HYDROX/SIMETH 30 ML LIQUID UDC PO PRN (09:26)
[2017-01-19] MEDS: SILVER SULFADIAZINE 1% CREAM 50 GM TP SCH (09:26)
[2017-01-19] MEDS: HYDROCODONE/APAP 5-325MG TABLET PO PRN (09:29)
[2017-01-19 09:42] LABS: BAND % (MANUAL) 8 % (0-10); BASOPHILS % (MANUAL) 1 % (0-2); EOSINOPHILS % (MANUAL) 2 % (0-8); LYMPHOCYTES % (MANUAL) 23 % (20-40); METAMYELOCYTES % 1 % (0-1); MONOCYTES % (MANUAL) 12 % (2-10); MYELOCYTES % 1 % (0-0); NEUTROPHILS % (MANUAL) 52 % (42-75)
[2017-01-19 12:09] VITALS: BP 107/62
[2017-01-19 15:50] VITALS: BP 122/74
--- NOTE | 2017-01-19 19:16 | NUR ---
PT IS LAYING IN BED COMFORTABLY. NO S/S OF RESPIRATORY DISTRESS NOTED. NO PAIN NOTED. ALL SAFETY NEEDS ARE MET. PT REPORT IS GIVEN TO NOC NURSE. IV INTACT/PATENT.GRIFFIN IS DRAINING WELL YELLOW/CLEAR URINE
[2017-01-19 20:14] VITALS: BP 114/81
[2017-01-19] MEDS: ALBUTEROL SULFATE 2.5 MG/3 ML NEBU NEB PRN (21:08)
[2017-01-20] MEDS: LINEZOLID IV 600 MG in PREMIXED 1 EACH IV SCH (04:13)
[2017-01-20 04:56] VITALS: BP 120/56
[2017-01-20] MEDS: CLINDAMYCIN PHOSPHATE IV 900 MG in IV DEXTROSE 5% 100 ML IV SCH ×2 (05:32→14:55)
[2017-01-20] MEDS: MEROPENEM 1 G in IV NORMAL SALINE 100 ML IV SCH ×3 (06:16→21:56)
[2017-01-20 06:51] LABS: BASOPHILS % (AUTO) 0.6 % (0.0-2.0); EOSINOPHILS # (AUTO) 0.2 K/uL (0.0-0.7); EOSINOPHILS % (AUTO) 3.4 % (0.0-7.0); HEMATOCRIT 26.8 % (37-47); HEMOGLOBIN 8.5 G/DL (12.0-16.0); LYMPHOCYTES # (AUTO) 1.8 K/UL (0.8-4.8); LYMPHOCYTES % (AUTO) 28.6 % (20.5-51.5); MEAN CORPUSCULAR HEMOGLOBIN 23.3 UUG (27.0-31.0); MEAN CORPUSCULAR HGB CONC 32 g/dL (32.0-37.0); MEAN CORPUSCULAR VOLUME 73.1 FL (81.0-99.0); MONOCYTES # (AUTO) 0.8 K/UL (0.1-1.30); MONOCYTES % (AUTO) 12.7 % (0.0-11.0); NEUTROPHILS # (AUTO) 3.4 K/UL (1.8-8.9); NEUTROPHILS % (AUTO) 54.7 % (38.5-71.5); PLATELET COUNT (AUTO) 272 K/UL (150-450); RED BLOOD CELL COUNT(AUTO) 3.66 MIL/UL (4.2-5.4); WHITE BLOOD COUNT (AUTO) 6.2 K/UL (4.0-11.2)
[2017-01-20 07:03] LABS: CREATININE 0.7 mg/dL (0.6-1.3); MAGNESIUM 2.3 mg/dL (1.8-2.4); PHOSPHOROUS 5.2 mg/dL (2.5-4.9); POTASSIUM 4.7 mmol/L (3.5-5.1)
[2017-01-20] MEDS: FLUTICASONE/VILANTEROL 1 EACH BLST.W.DEV INH SCH (08:10)
[2017-01-20] MEDS: ASCORBIC ACID 500 MG TABLET PO SCH (08:14)
[2017-01-20] MEDS: MULTIVIT, IRON, MIN NO. 8, FA TABLET PO SCH (08:14)
[2017-01-20] MEDS: ZINC SULFATE 220 MG CAPSULE PO SCH (08:14)
[2017-01-20] MEDS: LACTOBACILLUS RHAMNOSUS GG 1 EACH CAPSULE PO SCH ×2 (08:14→21:56)
[2017-01-20] MEDS: SILVER SULFADIAZINE 1% CREAM 50 GM TP SCH (08:15)
[2017-01-20 08:28] LABS: BAND % (MANUAL) 6 % (0-10); NEUTROPHILS % (MANUAL) 49 % (42-75)
[2017-01-20 08:29] LABS: EOSINOPHILS % (MANUAL) 3 % (0-8); LYMPHOCYTES % (MANUAL) 32 % (20-40); MONOCYTES % (MANUAL) 10 % (2-10)
[2017-01-20] MEDS ORDERED: LOPERAMIDE HCL 1 MG/5 ML UDC PO PRN (10:30)
[2017-01-20] MEDS: HYDROCODONE/APAP 5-325MG TABLET PO PRN (11:37)
[2017-01-20 11:44] VITALS: BP 102/65
[2017-01-20 16:00] VITALS: BP 105/71
[2017-01-20] MEDS ORDERED: ASCO500T9 PO (16:41)
[2017-01-20] MEDS ORDERED: LACT1CAP57 PO (16:41)
[2017-01-20] MEDS ORDERED: Multivit, Iron, Min No. 8, Fa PO (16:41)
[2017-01-20] MEDS ORDERED: ACET325T53 PO (16:41)
[2017-01-20] MEDS ORDERED: LOPE1LIQ PO (16:41)
[2017-01-20] MEDS ORDERED: ZINC220C8 PO (16:41)
[2017-01-20] MEDS ORDERED: HYDR-3326 PO (16:41)
[2017-01-20] MEDS ORDERED: Silver Sulfadiazine 1% Cream TP (16:41)
[2017-01-20] MEDS ORDERED: LINE600T PO (17:00)
[2017-01-20] MEDS ORDERED: CLIN300C3 PO (17:00)
--- NOTE | 2017-01-20 19:51 | NUR ---
NO CHANGES NOTED,ALL SAFETY NEEDS ARE MET.
[2017-01-20 20:00] VITALS: BP 103/54
[2017-01-20] MEDS ORDERED: LINEZOLID 600 MG TABLET PO SCH (21:00)
--- NOTE | 2017-01-20 21:00 | NUR ---
Patient in room no SOB denies chest pain, awaiting for her fiance to pick her up. Vital signs are WNL. Bilateral leg cellulitis improved. Patient requested for a sandwich & wound dressing change, needs given. Sponge bath provided & kept comfortable. Due meds given patient tolerated. Left arm heplock discontinued, miller catheter removed.
[2017-01-20] MEDS: ALBUTEROL SULFATE 2.5 MG/3 ML NEBU NEB PRN (21:13)
[2017-01-20] MEDS ORDERED: CLINDAMYCIN HCL 300 MG CAPSULE PO SCH (22:00)
--- NOTE | 2017-01-20 23:10 | NUR ---
Patient ready to leave, well groomed & clean. No pain complaint. Assisted down via wheelchair escorted by STEWART & her fiance. No acute resp distress. Discharged.
== END 2017-01-20 23:08 | disposition home health service (06) | DRG 720 ==
LOC: ER 17:34 → TELE 20:03 → MED 01-13 14:15
PROVIDERS: ADMIT Family Medicine; ATTEND Family Medicine
DX: A41.9 Sepsis, unspecified organism (principal); E43 Unspecified severe protein-calorie malnutrition; D68.59 Other primary thrombophilia; K50.90 Crohn's disease, unspecified, without complications; E87.1 Hypo-osmolality and hyponatremia; E87.8 Other disorders of electrolyte and fluid balance, not elsewhere classified; Z68.41 Body mass index [BMI] 40.0-44.9, adult; R17 Unspecified jaundice; E66.01 Morbid (severe) obesity due to excess calories; D50.0 Iron deficiency anemia secondary to blood loss (chronic); L03.115 Cellulitis of right lower limb; F17.200 Nicotine dependence, unspecified, uncomplicated; Z91.14 Patient's other noncompliance with medication regimen; Z79.899 Other long term (current) drug therapy; N39.0 Urinary tract infection, site not specified; M17.9 Osteoarthritis of knee, unspecified; J44.9 Chronic obstructive pulmonary disease, unspecified; I89.0 Lymphedema, not elsewhere classified; F10.20 Alcohol dependence, uncomplicated; E83.39 Other disorders of phosphorus metabolism; L03.116 Cellulitis of left lower limb; M17.10 Unilateral primary osteoarthritis, unspecified knee; E80.6 Other disorders of bilirubin metabolism; R74.0 Nonspecific elevation of levels of transaminase and lactic acid dehydrogenase [LDH]; T84.020A Dislocation of internal right hip prosthesis, initial encounter; Y79.2 Prosthetic and other implants, materials and accessory orthopedic devices associated with adverse incidents; Y92.89 Other specified places as the place of occurrence of the external cause
CPT/HCPCS: 36415; 70030-TC; 71010; 73700; 83605; 83735; 84100; 84443; 84703; 85025; 85730; 86140; 87040; 87086; 93005; 94640; 94664; A4663; J0690; J1885; J2020; J2185; J3370; J3475; J3490; J3590; J7040; J7050; J7060